=== PATIENT | male | born 1955 | race Caucasian/White ===

== ENCOUNTER 2018-03-07 13:33 | Emergency (ER) | payer OTHER ==
[~2018-03-07] VITALS: Ht 182.9 cm; Wt 113.4 kg
[~2018-03-07 13:33] MED LIST: LANTUS SQ; NOVOLOG100 UNIT/1 SQ
[2018-03-07] MEDS ORDERED: HUMALOG100 UNIT/1 SUBQ (13:44)
[2018-03-07] MEDS ORDERED: LIPITOR10 MG PO (13:44)
[2018-03-07] MEDS ORDERED: ASPIR 8181 MG PO (13:44)
[2018-03-07] MEDS ORDERED: JANUMET 50-1,01 EACH PO (13:44)
[2018-03-07] MEDS ORDERED: FLOMAX0.4 MG PO (13:44)
[2018-03-07] MEDS ORDERED: COZAAR 25 MG TA25 M1 PO (13:44)
[2018-03-07] MEDS ORDERED: CHILDREN'S ALLE30 M1 PO (13:45)
[2018-03-07] MEDS ORDERED: TRESIBA FL100 UNIT/1 SUBQ (13:45)
[2018-03-07 14:10] LABS: ABSOLUTE BASOPHILS 0.1 thou/uL (0.0-0.2); ABSOLUTE EOSINOPHILS 0.1 thou/uL (0.0-0.7); ABSOLUTE MONOCYTES 0.5 thou/uL (0.0-1.2); ABSOLUTE NEUTROPHILS 4.8 thou/uL (1.6-8.1); BASOPHILS 0.8 %; EOSINOPHILS 0.9 %; HEMATOCRIT 38.7 % (42.0-52.0); HEMOGLOBIN 12.8 gm/dL (14.0-18.0); LYMPHOCYTES 26.8 %; MCH 31.2 pg (26.0-34.0); MCHC 33.1 g/dL (28.0-37.0); MONOCYTES 6.9 %; MPV 7.8 fl. (7.2-11.1); NUCLEATED RBCS 0 /100WBC; PLATELET COUNT* 273 thou/uL (150-400); POLYS 64.6 %; RBC 4.12 mil/uL (4.50-6.00); RDW-CV 15.8 % (10.5-14.5); WBC 7.4 thou/uL (4.0-11.0)
[2018-03-07 14:14] LABS: CALCIUM 9.1 mg/dL (8.5-10.1); POTASSIUM 4.1 mmol/L (3.5-5.1)
[2018-03-07 14:24] LABS: ALBUMIN 3.7 g/dL (3.4-5.0); TOTAL PROTEIN 7.3 g/dL (6.4-8.2)
[2018-03-07 14:51] LABS: URINE BILIRUBIN NEGATIVE (Negative); URINE BLOOD 3+ (Negative); URINE CLARITY CLEAR; URINE COLOR YELLOW; URINE GLUCOSE-RANDOM NEGATIVE (Negative); URINE KETONES NEGATIVE (Negative); URINE LEUKOCYTES-REFLEX NEGATIVE (Negative); URINE NITRITE-REFLEX NEGATIVE (Negative); URINE PROTEIN NEGATIVE (Negative); URINE SPECIFIC GRAVITY 1.025 (1.005-1.030); URINE UROBILINOGEN 0.2 E.U./dl (0.2-1.0)
[2018-03-07 14:59] LABS: SQUAMOUS 0-3 Few /LPF (0-3); URINE RBC >20 Many /HPF (0-2); URINE WBC-REFLEX 0-5 Rare /HPF (0-5)
[2018-03-07 15:00] LABS: BACTERIA-REFLEX 1-9 Few /HPF (None Seen); CASTS None Seen /LPF (None Seen); CRYSTALS None Seen /LPF (None Seen); MUCUS 4-6 Moderate strn/LPF (None Seen)
[2018-03-07] MEDS ORDERED: ZOFRAN ODT4 MG PO (16:15)
[2018-03-07] MEDS ORDERED: NORCO 5-325 TA1 EAC1 PO (16:15)
[2018-03-07 16:33] VITALS: BP 143/94
== END 2018-03-07 16:34 | disposition home or self-care (01) ==
LOC: M.ERS 13:33
PROVIDERS: Nurse Practitioner Family
DX: N20.0 Calculus of kidney (principal); R11.2 Nausea with vomiting, unspecified; E11.9 Type 2 diabetes mellitus without complications; I10 Essential (primary) hypertension; Z86.14 Personal history of Methicillin resistant Staphylococcus aureus infection; Z79.4 Long term (current) use of insulin; Z86.73 Personal history of transient ischemic attack (TIA), and cerebral infarction without residual deficits; Z87.442 Personal history of urinary calculi